=== PATIENT | female | born 1985 | race Two or more races ===

== ENCOUNTER 2017-03-13 11:21 | Emergency (ER) | payer OTHER ==
--- NOTE | 2017-03-13 11:53 | XRAY Preliminary Report ---
Exam: XR Foot 3 View RT IMPRESSION: 1. Normal alignment of the right foot without evidence for acute fracture or dislocation. 2. No radiopaque foreign objects are seen in the soft tissues. [facility] SITE ID: [id number]
--- NOTE | 2017-03-13 11:56 | XRAY Report ---
EXAM: RIGHT FOOT RADIOGRAPHY EXAM DATE: 03/13/2017 11:44 AM. CLINICAL HISTORY: Injury. COMPARISON: None. TECHNIQUE: 3 views. FINDINGS: Bones: Normal. No fractures or bone lesions. Joints: Normal. No subluxations. Soft Tissues: No soft tissue swelling or radiopaque foreign objects in the soft tissues. IMPRESSION: 1. Normal alignment of the right foot without evidence for acute fracture or dislocation. 2. No radiopaque foreign objects are seen in the soft tissues. [facility] Referring Provider Line: [phone] SITE ID: [id number]
--- NOTE | 2017-03-13 12:34 | ED Physician Documentation ---
History of Present Illness - Stated complaint Stated Complaint: R FOOT INJ - Chief complaint Chief Complaint: Ext Problem - History obtained from History obtained from: Patient - History of Present Illness Timing: How many weeks ago (1) Pain level max: 3 Pain level now: 2 Improved by: rest Worsened by: walking - Additonal information Additional information: Patient is a 31-year-old female who was at home when a glass broke last week. She then accidentally stepped on the glass. Cleaned the wound well. She was not having really any issues until she played Frisbee yesterday and now has increasing pain near the base of the second toe. She has not had any redness, drainage or swelling. Review of Systems Constitutional: denies: Fever : denies: Now [facility] PD PAST MEDICAL HISTORY - Past Medical History Past Medical History: No - Present Medications Home Medications: Ambulatory Orders Medication Instructions Recorded Confirmed No Known Home Medications [No 03/13/17 03/13/17 Known Home Medications] - Allergies Allergies/Adverse Reactions: Allergies Allergy/AdvReac Type Severity Reaction Status Date / Time No Known Drug Allergies Allergy Verified 05/03/16 05:35 - Social History Does the pt smoke?: No Smoking Status: Never smoker PD ED PE NORMAL - Vitals Vital signs reviewed: Yes - General General: Alert and oriented X 3, No acute distress - Derm Derm: Warm and dry - Extremities Extremities: Other (Right foot - Plantar aspect of the base of the left second toe shows a small laceration, well-healing. No signs of infection. No palpable foreign body. Bedside ultrasound does not reveal any foreign body in the soft tissues. Otherwise normal examination of the foot.) - Neuro Neuro: Alert and oriented X 3 - Psych Psych: Normal mood, Normal affect Results - Vitals Vitals: Vital Signs - 24 hr 03/13/17 11:26 Temperature 37.1 C Heart Rate 76 Respiratory 18 Rate Blood Pressure 122/78 O2 Saturation 100 Oxygen O2 Source Room air - Rads (name of study) Right foot x-ray Radiology: Prelim report reviewed, EMP read contemporaneously, See rad report ( Normal alignment of the right foot without evidence for acute fracture or dislocation. No radiopaque foreign objects are seen in the soft tissues) PD MEDICAL DECISION MAKING - ED course Complexity details: reviewed results, re-evaluated patient, considered differential, d/w patient ED course: Patient is a 31-year-old female who presents to the emergency department with some discomfort at the base of the second toe after stepping on glass a week ago. There is no evidence of infection. No evidence of foreign body on physical examination, ultrasound examination or x-ray. Will place her in a postop shoe and see if perhaps this is just more of a sprained toe from playing Frisbee yesterday. Patient counseled regarding signs and symptoms for which I believe and urgent re-evaluation would be necessary. Patient with good understanding of and agreement to plan and is comfortable going home at this time This document was made in part using voice recognition software. While efforts are made to proofread this document, sound alike and grammatical errors may occur. Departure - Departure Disposition: 01 Home, Self Care Clinical Impression: Foot laceration Qualifiers: Encounter type: initial encounter Laterality: right Qualified Code(s): S91.311A - Laceration without foreign body, right foot, initial encounter Condition: Good Instructions: ED Laceration Foot Follow-Up: Provider,Other [Primary Care Provider] - Within 1 week (if still having symptoms ) Comments: Wear the postoperative shoe at home for at least the next 3 days. Keep the wound clean and dry. Return if you worsen.
[2017-03-13 12:48] VITALS: BP 112/76
== END 2017-03-13 12:48 | disposition home or self-care (01) ==
LOC: ED 11:21
DX: S91.311A Laceration without foreign body, right foot, initial encounter (principal); W25.XXXA Contact with sharp glass, initial encounter; Y92.009 Unspecified place in unspecified non-institutional (private) residence as the place of occurrence of the external cause
CPT/HCPCS: 99283

== ENCOUNTER 2017-07-04 12:56 | Outpatient (CLI) | payer OTHER | END 2017-07-04 12:57 | disposition home or self-care (01) | LOC: LAB.WCP 12:56 | PROVIDERS: ATTEND Physician Assistant Medical | DX: R35.0 Frequency of micturition (principal); R31.9 Hematuria, unspecified | CPT/HCPCS: 87086 ==

== ENCOUNTER 2018-03-14 11:44 | Emergency (ER) | payer OTHER ==
[2018-03-14 12:00] VITALS: BP 132/77
--- NOTE | 2018-03-14 12:50 | ED Physician Documentation ---
PD HPI MHE - Stated complaint Stated Complaint: Medication Need - Chief complaint Chief Complaint: General - History obtained from History obtained from: Patient - History of Present Illness Primary symptom: Suicidal ideation, Depression, Other (insomnia) Timing - onset: How many months ago (has felt some depression "my whole life" from teenage times. Had some counseling when teen. No major depression. Had felt more depressed the past few months and started counseling few weeks ago. Her counselor suggested she start on antidepressant as well, but she cannot get appt with psychiatrist until 04/11 or such, and her PMD was not wanting to Rx antidepressants. So here for Rx/suggestions. Denies plan nor attempts. Vague suicidal ideation. Had counseling today and her counselor again suggested starrting antidepressant.) Contributing factors: Family (2 kids and feels tired. youngest child is over a year old.) Similar symptoms before: Diagnosis (depression) Recently seen: Clinic (counseling) Review of Systems Constitutional: reports: Fatigue. denies: Fever, Chills, Weight Loss (some weight gain as she feels she is eating more for comfort) Nose: denies: Rhinorrhea / runny nose, Congestion Throat: denies: Sore throat Cardiac: denies: Chest pain / pressure, Palpitations Respiratory: denies: Dyspnea, Cough GI: denies: Abdominal Pain, Nausea, Vomiting, Diarrhea : denies: Dysuria, Frequency Neurologic: denies: Near syncope, Altered mental status, Headache, Head injury Psychiatric: reports: Depressed, Insomnia. denies: Hallucinations, Delusions, Anxiety Endocrine: reports: Weight gain. denies: Easy bruising / bleeding Immunocompromised: denies: Immunocompromised PD PAST MEDICAL HISTORY - Past Medical History Cardiovascular: None Respiratory: None Neuro: None Endocrine/Autoimmune: None Psych: Depression - Present Medications Home Medications: Ambulatory Orders Medication Instructions Recorded Confirmed Amitriptyline HCl 50 mg PO QPM #30 tablet 03/14/18 - Allergies Allergies/Adverse Reactions: Allergies Allergy/AdvReac Type Severity Reaction Status Date / Time No Known Drug Allergies Allergy Verified 05/03/16 05:35 - Social History Does the pt smoke?: No Smoking Status: Never smoker PD ED PE NORMAL - Vitals Vital signs reviewed: Yes - General General: Alert and oriented X 3, No acute distress, Well developed/nourished, Other (pleasant and interacts well. Here with family who seem supportive. Talks openly. ) - Neck Neck: Supple, no meningeal sign, No adenopathy, Thyroid normal - Cardiac Cardiac: RRR, No murmur - Respiratory Respiratory: Clear bilaterally - Derm Derm: Normal color, Warm and dry, No rash - Neuro Neuro: Alert and oriented X 3, No motor deficit, Normal speech - Psych Psych: Normal mood, Normal affect Results - Vitals Vitals: Vital Signs - 24 hr 03/14/18 11:53 Temperature 36.6 C Heart Rate 87 Respiratory 16 Rate Blood Pressure 132/77 H O2 Saturation 100 Oxygen O2 Source Room air PD MEDICAL DECISION MAKING - ED course Complexity details: considered differential (having depression and vague suicidal thoughts, without plan nor attempts. Has forward thinking with family and continuing counseling. Has had some sleep problems. Consider her low risk for suicidal attempt. Given info about Crisis Line. Considered SSRI vs TCA for now. Opted for Elavil for sooner help with sleep and less sifde effects. Psychiatrist will likely want her on SSRI longer term, but defer to her appt in a month. Discussed exercise and eating well. ), d/w patient - Sepsis Event Vital Signs: Vital Signs - 24 hr 03/14/18 11:53 Temperature 36.6 C Heart Rate 87 Respiratory 16 Rate Blood Pressure 132/77 H O2 Saturation 100 Oxygen O2 Source Room air Departure - Departure Disposition: 01 Home, Self Care Clinical Impression: Depression Qualifiers: Depression Type: major depressive disorder Major depression recurrence: unspecified whether recurrent Active/Remission status: currently active Major depression episode severity: mild Qualified Code(s): F32.0 - Major depressive disorder, single episode, mild Insomnia Qualifiers: Insomnia type: unspecified Qualified Code(s): G47.00 - Insomnia, unspecified Condition: Stable Record reviewed to determine appropriate education?: Yes Instructions: ED Depression Prescriptions: Amitriptyline HCl 50 mg PO QPM #30 tablet Comments: Can start with amitriptyline as an antidepressant and take it at night as it helps with sleep as well. See how you do with this medication. Continue counseling with your counselor. See the psychiatrist on April 11 as scheduled. Talk with your counselor chemical operations and training the crisis line if you feel worse or have need for acute intervention. The psychiatrist can adjust the medication or change you to a different category when you see them. Discharge Date/Time: 03/14/18 13:35
== END 2018-03-14 13:35 | disposition home or self-care (01) ==
LOC: ED 11:44
DX: F32.0 Major depressive disorder, single episode, mild (principal); G47.00 Insomnia, unspecified
CPT/HCPCS: 99283